=== PATIENT | female | born 1985 | race Caucasian/White ===

== ENCOUNTER 2017-02-25 14:24 | Emergency (ER) | payer BC ==
[~2017-02-25] VITALS: Ht 152.4 cm; Wt 45.4 kg
[~2017-02-25 14:24] MED LIST: CIPROFLOXACIN500 M1 PO; COMPAZINE10 MG PO; K-DUR 20 MEQ T20 MEQ PO; MOBIC7.5 MG PO; NEURONTIN600 MG; ULTRAM 50MG TAB50 MG PO; VALIUM5 MG
[2017-02-25] MEDS ORDERED: FLEXERIL PO ×2 (14:33→15:48)
[2017-02-25] MEDS ORDERED: IBUPROFEN 600600 M1 PO (15:48)
[2017-02-25 16:09] VITALS: BP 98/70
== END 2017-02-25 16:10 | disposition home or self-care (01) ==
LOC: ER 14:24
DX: S46.912A Strain of unspecified muscle, fascia and tendon at shoulder and upper arm level, left arm, initial encounter (principal); Z86.69 Personal history of other diseases of the nervous system and sense organs; Z88.6 Allergy status to analgesic agent; Z88.1 Allergy status to other antibiotic agents; Z88.5 Allergy status to narcotic agent; Z91.040 Latex allergy status; Z88.0 Allergy status to penicillin; Z88.2 Allergy status to sulfonamides; Z88.8 Allergy status to other drugs, medicaments and biological substances; F17.200 Nicotine dependence, unspecified, uncomplicated; X58.XXXA Exposure to other specified factors, initial encounter; Y93.89 Activity, other specified; Y92.89 Other specified places as the place of occurrence of the external cause; Y99.8 Other external cause status